=== PATIENT | male | born 1985 | race Caucasian/White ===

== ENCOUNTER 2021-04-14 00:49 | Emergency (ER) | payer OTHER, SELFPAY ==
--- NOTE | ~2021-04-14 | CT_ITS ---
EXAMINATION: CT abdomen pelvis w con DATE: 04/14/2021 03:14 INDICATION: Right upper quadrant abdominal pain. Nausea. TECHNIQUE: Computed tomography (CT) of the abdomen and pelvis was performed with 100 mL Omnipaque-350 intravenous contrast. Automated exposure control and iterative reconstruction technique were employe d. The dose-length product was 1816.99 mGy-cm. COMPARISON: None FINDINGS: Minimal discoid atelectasis in the lingula. Heart size is normal. No pericardial or pleural effusion. Diffuse hepatic steatosis with focal sparing along the gallbladder fossa. Likely sludge and a few ti ny centrally fat attenuation cholesterol gallstones in the dependent aspect of the otherwise normal g allbladder with no evident wall thickening or pericholecystic inflammatory stranding to suggest acute cholecystitis. Pancreas bilateral adrenal glands and kidneys are normal. Bowels including the append ix are normal. Bladder is normal. No free intraperitoneal gas or fluid. No pathologically enlarged ab dominal or pelvic lymphadenopathy. Bones are unremarkable. IMPRESSION: 1. Cholelithiasis. Reviewed, dictated and finalized at location A. IMPRESSION: 1. Cholelithiasis.
--- NOTE | 2021-04-14 00:55 | ED.ABDPAIN ---
HPI - Abdominal Pain General Chief Complaint: Abdominal Pain Stated Complaint: gallstones Time Seen by Provider: 04/14/21 00:55 Source: patient Mode of arrival: ambulatory Limitations: no limitations History of Present Illness HPI narrative: Patient is a 35 yo male who presents for evaluation of right upper quadrant abdominal pain. Patient reports onset of pain approximately two hours ago at midnight. Patient pain is currently minimal; rated 1.5/10. When patient was experiencing more severe pain, only in the right upper quadrant without radiation to the back or chest. No lower abdominal pain. He had associated nausea without vomiting. No fever or chills. Patient reports intermittent nature of this pain over the past several months although it has increased in the frequency that the pain is been occurring thus he decided to come to the emergency department for assessment this evening. He states that he believes this is due to gallstone type pain given family history of symptomatic cholelithiasis. Patient has never had a CT scan or ultrasound diagnosing him with gallstones. He denies dysuria or hematuria. No urinary frequency. Related Data Home Medications Medication Instructions Recorded Confirmed No Home Medications 04/14/21 04/14/21 Allergies Allergy/AdvReac Type Severity Reaction Status Date / Time No Known Allergies Allergy Verified 04/14/21 01:07 Review of Systems Review of Systems: CONSTITUTIONAL: Denies fever, chills, or sweats. EYES: Denies visual changes, redness, or discharge. ENT: Denies rhinorrhea, congestion, sore throat, or otalgia. CARDIOVASCULAR: Denies chest pain, palpitations, or edema. RESPIRATORY: Denies cough or dyspnea. GASTROINTESTINAL: Reports abdominal pain, nausea, denies vomiting or diarrhea GENITOURINARY: Denies dysuria or hematuria. SKIN: Denies rash or itching. MUSCULOSKELETAL: Denies back pain, joint pain, or myalgia. NEUROLOGIC: Denies headache, numbness, or weakness. [facility] Social History Social History (Updated 04/14/21 @ 01:43 by Zuleyma De MD) Smoking status: Never smoker Alcohol intake: never Substance use: never Living arrangements: with family Gender identity (if verbalized by the patient): Male Exam Narrative: GENERAL: Awake, alert, conversant HEAD: Normocephalic, atraumatic. EYES: PERRLA and EOMI. ENT: Nares clear, no rhinorrhea or epistaxis. Mucous membranes moist. NECK: Supple. CHEST: No respiratory distress, breathing even and non labored HEART: Regular rate, sinus rhythm ABDOMEN: Obese, Non distended, mild right upper quadrant tenderness without guarding, positive Fenton sign, no epigastric tenderness, nonrigid, no rebound EXTREMITIES: Normal range of motion. No edema. SKIN: Warm, dry, no rash. NEURO:No focal deficits. Alert and oriented x3 Course Vital Signs Vital signs: Vital Signs Temperature 36.2 C L 04/14/21 00:59 Pulse Rate 71 04/14/21 00:59 Respiratory Rate 18 04/14/21 00:59 Blood Pressure 143/93 H 04/14/21 00:59 Pulse Oximetry 98 04/14/21 00:59 Temperature 36.2 C L 04/14/21 00:59 Pulse Rate 76 04/14/21 03:45 Respiratory Rate 19 04/14/21 03:45 Blood Pressure 135/80 04/14/21 03:45 Pulse Oximetry 99 04/14/21 03:45 MDM - Abdominal Pain MDM Narrative Medical decision making narrative: Patient presented for evaluation of right upper quadrant abdominal pain that is very mild at the time of my assessment. Patient's vital signs are stable. He is afebrile. Mild right upper quadrant pain on exam. He does have a mild leukocytosis. No significant anemia. No significant electrolyte abnormality. No hyperbilirubinemia. ALT is mildly elevated at 66. Given patient's symptoms, I was concerned for possible symptomatic cholelithiasis versus acute cholecystitis versus pancreatitis. Laboratory results are more reassuring. He does not have any urinary symptoms, thus UA not obtained. CT scan shows a distended gal
[2021-04-14 00:59] VITALS: BP 143/93; PULSE 71; RESP 18; TEMP 36.2; O2SAT 98
[2021-04-14] MEDS: SODIUM CHLORIDE 0.9% IV 1,000 ML 999 ML IV CONT (01:32)
[2021-04-14] MEDS: ONDANSETRON INJ 4 MG/2 ML VIAL IV PUSH (01:32)
[2021-04-14 01:42] LABS: Basophils Percent Auto 0.3 % (0.2-1.2); Eosinophils Absolute Auto 0.4 K/mm3 (0-0.3); Eosinophils Percent Auto 3.4 % (0-4.4); Hematocrit 40.9 % (42.0-52.0); Hemoglobin 13.3 g/dL (14.0-18.0); Immature Granulocyte Absolute 0.06 K/mm3 (0.00-0.031); Immature Granulocyte Percent A 0.5 % (0-0.5); Lymphocytes Absolute Auto 3.53 K/mm3 (0.9-3.2); Lymphocytes Percent Auto 28.8 % (18.3-44.2); Mean Corpuscular HGB Conc 32.5 g/dl (32-36); Mean Corpuscular Hemoglobin 26.6 pg (26-34); Mean Corpuscular Volume 81.8 fl (80-100); Mean Platelet Volume 10.8 fl (7.4-10.4); Monocytes Absolute Auto 0.9 K/mm3 (0.1-0.6); Monocytes Percent Auto 7.3 % (2.6-8.5); Neutrophils Absolute Auto 7.3 K/mm3 (1.3-6.7); Neutrophils Percent Auto 59.7 % (45.5-73.1); Platelet Count Result 359 k/mm3 (150-375); Red Cell Distribution Width 13.8 % (11.5-14.5); White Blood Count 12.3 K/mm3 (4.5-10.0)
[2021-04-14 01:53] LABS: Lipase 86 U/L (23-300)
[2021-04-14 02:22] LABS: Alanine Aminotransferase 66 U/L (4-50); Albumin Level 4.3 g/dL (3.5-5.1); Alkaline Phosphatase 103 U/L (38-126); Anion Gap 6 mmol/L (8-16); Aspartate Amino Transferase 45 U/L (17-59); Bilirubin,Total 0.2 mg/dL (0.2-1.3); Blood Urea Nitrogen 18 mg/dL (9-20); Calcium 9.4 mg/dL (8.4-10.2); Carbon Dioxide 30 mmol/L (22-30); Chloride 105 mmol/L (98-107); Estimated CRCL calculation 161 ml/min; Estimated Glomerular Filt Rate > 60; Glucose 120 mg/dL (65-110); Potassium 4.2 mmol/L (3.4-5.0); Sodium 141 mmol/L (137-145)
[2021-04-14 03:45] VITALS: BP 135/80; PULSE 76; RESP 19; O2SAT 99
[2021-04-14 04:22] VITALS: BP 126/67; PULSE 79; RESP 14; O2SAT 98
== END 2021-04-14 04:20 | disposition home or self-care (01) ==
PROVIDERS: Emergency Provider Emergency Medicine
DX: R19.01 Right upper quadrant abdominal swelling, mass and lump (principal); K76.0 Fatty (change of) liver, not elsewhere classified
CPT/HCPCS: 36415; 74177; 80053; 83690; 85025; 96361; 96374; 99284; J2405; J7030; Q9967